=== PATIENT | male | born 1950 | race Caucasian/White ===

== ENCOUNTER 2018-08-22 10:27 | Emergency (ER) | payer OTHER, SELFPAY ==
[2018-08-22 10:38] VITALS: BP 130/70; PULSE 54; RESP 16; TEMP 36.4; O2SAT 100; BMI 28.7
--- NOTE | 2018-08-22 11:48 | DI.RAD.S_ITS ---
PROCEDURE: XR LUMBAR SPINE 2-3V INDICATIONS: fall/pain TECHNIQUE: 3 views of the lumbar spine were acquired. COMPARISON: [facility], [place], BILATERAL KNEE MIN 4VW, 09/10/2016, 12:24. FINDINGS: Bones: 5 [id number] vertebrae are present. There is normal bony alignment except for minimal convex leftward scoliosis centered at L3. No vertebral body compression fractures. No suspicious bony lesions. There is moderate to moderately severe degenerative disc disease and facet osteoarthritis at L4-5 and L5-S1. Facet degeneration is greater on the left than the right. Soft tissues: Overlying bowel gas pattern is normal. No suspicious soft tissue calcifications. IMPRESSION: No trauma found. Moderately severe to severe degenerative disc disease and facet osteoarthritis at L4-5 and L5-S1, left greater than right. Dictated by: Hernandez Echevarria M.D. on 08/22/2018 at 12:24 Approved by: Hernandez Echevarria M.D. on 08/22/2018 at 12:25
--- NOTE | 2018-08-22 11:51 | ED.FALL ---
HPI - Fall General Chief Complaint: Trauma Stated Complaint: NECK/BACK/RIB PAIN,DIFF BREATHING Time Seen by Provider: 08/22/18 11:02 Source: patient Mode of arrival: ambulatory Limitations: no limitations History of Present Illness HPI Narrative: Patient states he slipped on icy steps this morning and fell, striking his back. Patient states there were only 3 steps, so he did not fall down any further stairs. He states he is able to get up and walk afterward but has been having some ribs spasms since. He also felt a crunch in his neck, but states this is a common occurrence, secondary to his degenerative disease. Patient also states he has some pain in his lumbar spine. No other complaints at this time. Patient denies abdominal pain, chest pain, shortness of breath, or nausea. He states pain is minimal unless he is moving. Patient did not his head or lose consciousness. MD complaint: fall Onset (ago): hour(s) ( Three) Fall from: standing Fall witnessed: yes, by family Place fall occurred: home Loss of consciousness: none Symptoms prior to fall: none Context: tripped/slipped Severity scale (1-10): 4 ( with movement only, or with chest wall spasms.) Quality: spasming Related Data Home Medications Medication Instructions Recorded Confirmed omeprazole 20 mg PO QDAY #0 07/07/11 ibuprofen 800 mg PO Q8HP PRN #0 06/30/13 Previous Rx's Medication Instructions Recorded atorvastatin [Lipitor] 40 mg PO HS #90 tab 09/01/16 calcipotriene [Dovonex] 0 TOPICAL BID #60 gm 11/21/16 fluorouracil [Efudex] 5 % TP BID #45 gm 11/21/16 diclofenac sodium [Voltaren] 1 % TOPICAL TID #100 gm 03/12/17 sildenafil (antihypertensive) 0 PO HS #40 tab 05/12/17 Allergies Allergy/AdvReac Type Severity Reaction Status Date / Time cedarwood [CEDARWOOD] AdvReac Intermediate HIVES, Unverified 01/13/18 12:12 RHINITIS Review of Systems Review of Systems All systems reviewed & are unremarkable except as noted in HPI and below Constitutional Denies chills, Denies fever(s), Denies lethargy and Denies weakness Eyes Denies change in vision, Denies eye discharge, Denies irritation and Denies loss of vision ENT Ears, Nose, Mouth, and Throat: Denies change in voice, Denies neck pain and Denies sore throat Cardiovascular Denies chest pain, Denies irregular heart rhythm, Denies lightheadedness, Denies palpitations, Denies dyspnea, Denies dyspnea on exertion and Denies orthopnea Respiratory Denies cough, Denies dyspnea, Denies dyspnea on exertion and Denies wheezing Gastrointestinal Gastrointestinal: Denies abdominal pain, Denies change in bowel habits, Denies diarrhea, Denies nausea and Denies vomiting Genitourinary Denies hematuria, Denies flank pain, Denies urinary incontinence and Denies urinary urgency Musculoskeletal Reports back pain and Denies neck pain Integumentary/Breasts Denies pruritus, Denies erythema, Denies rash and Denies wounds Neurologic Denies confusion, Denies loss of vision and Denies weakness Psychiatric Denies anxiety, Denies confusion, Denies depression, Denies homicidal ideation and Denies suicidal ideation Endocrine Denies palpitations Hematologic/Lymphatic Denies easy bruising Allergic/Immunologic Denies wheezing Exam Initial Vital Signs Initial Vital Signs: Vital Signs Temperature 97.5 F L 08/22/18 10:38 Pulse Rate 54 L 08/22/18 10:38 Respiratory Rate 16 08/22/18 10:38 Blood Pressure 130/70 08/22/18 10:38 Pulse Oximetry 100 08/22/18 10:38 Const General: cooperative and well developed Nutritional Appearance: well nourished Orientation: alert, awake, oriented x3 and not confused [facility] Head: normocephalic and atraumatic Ears: external ears normal Nose: external nose normal and No nasal discharge Face and sinus: face symmetric Mouth: oral mucosae normal and moist mucous membranes Teeth and gingiva: dentition normal Throat: tonsils normal and uvula midline Eyes General: appearance normal, both eyes and all related structures Eyelids: eyelids normal Conjunctivae: conjunctivae normal Sclera: sclerae normal Pupils: PERRL EOM: EOM intact bilaterally Neck Neck: normal visual inspection, trachea midline, No lymphadenopathy, No midline deformity and No JVD Lymphatic: No lymphedema Chest Chest: normal inspection of the chest Resp Effort & Inspection: normal respiratory effort, able to speak in complete sentences, no respiratory distress and no use of accessory muscles Auscultation: clear to auscultation bilaterally, no rales, no rhonchi and no wheezes Cardio Rate: regular rate Rhythm: regular rhythm Heart Sounds: no click, no gallops, no murmurs and no rubs Pulses: normal peripheral pulses GI Inspection: non-distended Palpation: soft, no hepatosplenomegaly, No guarding, No pulsatile mass and No tender Back/Spine/Pelvis Back: No CVA tenderness Cervical Spine: cervical ROM normal and No pain with cervical ROM Other: Patient has tenderness over his lumbar spine in the L to 3 area. No deformity or step-off is noted. No external edema or contusion noted. No skin breakage. Patient also has tenderness over his left lumbar paraspinal musculature. Patient has full range of motion of all extremities. No tenderness or step-off any other level of the spine. Skin General: no rashes or lesions noted, No jaundice and No petechiae Other: Patient has a linear abrasion across the anterior portion of his left shoulder. Neuro General: alert, oriented x3, gait normal and no focal motor deficits Speech: speech normal Extrem General: full ROM, no clubbing, cyanosis or edema, no pedal edema and no calf tenderness Psych Appearance: well kempt Mental Status: mental status grossly normal Attitude: cooperative Thought Content: normal and suicidality Judgment: judgment good [facility] Medical History Healthy adult (Acute) Surgical History History of carpal tunnel repair History of vasectomy History of vasectomy Status post appendectomy Family History Grandfather Heart disease Social History Smoking Status: Former smoker Course Course Narrative: Patient was sent for a lumbar spine x-ray series, which was unremarkable. Urine dip showed a very small amount of blood, which patient stated he has always had. I did feel he was stable for discharge home. I have given him a small prescription for analgesia as the patient does have to travel to [facility] and then onto [facility] in a couple of days. We have discussed home management of the symptoms, as well as usual indications for return. Orders Ordered: ED Orders 08/22/18 11:48 XR lumbar spine 2-3V Stat Vital Signs - 8 hr 08/22/18 10:38 Temperature 97.5 F L Pulse Rate 54 L Respiratory Rate 16 Blood Pressure 130/70 Pulse Oximetry 100 MDM - Fall Medical Records Attestation: I reviewed the patient's medical records. Lab Data Attestation: I reviewed the patient's lab results. Urine Dip Bedside Urine Glucose Negative Bedside Urine Bilirubin - Negative Bedside Urine Ketone + 15 Urine Specific [place] 1.025 Bedside Urine Occult Blood +/- Bedside Urine pH 6.0 Bedside Urine Protein - Negative Bedside Urine Urobilinogen - Negative Bedside Urine Nitrite - Negative Bedside Urine Leukocytes - Negative Esterase Imaging Data XR lumbar spine: Attestation: I personally reviewed and interpreted this imaging study as follows: (unremarkable) Radiologist's impression: [address] [address] XRay Report Signed Patient: Néstor Woodall [facility]#: [id number] : 1950Acct:[id number] Age/Sex: 68 / MDate of Service: 08/22/18 Loc: ED Accession Number: [id number] Procedure: XR lumbar spine 2-3V Ordering Provider: Dorothea Toure MD PROCEDURE: XR LUMBAR SPINE 2-3V INDICATIONS: fall/pain TECHNIQUE: 3 views of the lumbar spine were acquired. COMPARISON: [facility], , BILATERAL KNEE MIN 4VW, 09/10/2016, 12:24. FINDINGS: Bones: 5 [id number] vertebrae are present. There is normal bony alignment except for minimal convex leftward scoliosis centered at L3. No vertebral body compression fractures. No suspicious bony lesions. There is moderate to moderately severe degenerative disc disease and facet osteoarthritis at L4-5 and L5-S1. Facet degeneration is greater on the left than the right. Soft tissues: Overlying bowel gas pattern is normal. No suspicious soft tissue calcifications. IMPRESSION: No trauma found. Moderately severe to severe degenerative disc disease and facet osteoarthritis at L4-5 and L5-S1, left greater than right. Dictated by: Hernandez Echevarria M.D. on 08/22/2018 at 12:24 Approved by: Hernandez Echevarria M.D. on 08/22/2018 at 12:25 Discharge Plan Departure Patient Disposition: Home Clinical Impression: Contusion of lower back Discharge Date/Time: 08/22/18 13:18 Interventions: ED Discharge Assessment Last Done: 08/22/18 13:05 Instructions: DI for Low Back Pain, DI for Contusion Activity Restrictions/Additional Instructions: Your x-rays looked good. Urine dip showed a trace amount of blood, which you have stated has been an issue in the past. There is no evidence of major bleeding which would be consistent with a kidney injury. Prescriptions: No Action omeprazole 20 MG tablet,delayed release (DR/EC) 20 mg PO QDAY Qty: 0 RF: 0 ibuprofen 400 MG tablet 800 mg PO Q8HP PRNQty: 0 RF: 0 atorvastatin [Lipitor] 40 MG tablet 40 mg PO HS Qty: 90 RF: 3 fluorouracil [Efudex] 5 % cream 5 % TP BID Qty: 45 RF: 0 calcipotriene [Dovonex] 0.005 % cream Topical BID Qty: 60 RF: 0 diclofenac sodium [Voltaren] 1 % gel 1 % Topical TID Qty: 100 RF: 1 sildenafil (antihypertensive) 20 MG tablet PO HS Qty: 40 RF: 0 Referrals: Julianna De Paz ARNP [Primary Care Provider] -
[2018-08-22 11:52] VITALS: BP 111/66; PULSE 49; RESP 14; O2SAT 100
--- NOTE | 2018-08-22 11:56 | ED_ITS ---
HPI - Fall General Chief Complaint: Trauma Stated Complaint: NECK/BACK/RIB PAIN,DIFF BREATHING Time Seen by Provider: 08/22/18 11:02 Source: patient Mode of arrival: ambulatory Limitations: no limitations History of Present Illness HPI Narrative: Patient states he slipped on icy steps this morning and fell, striking his back. Patient states there were only 3 steps, so he did not fall down any further stairs. He states he is able to get up and walk afterward but has been having some ribs spasms since. He also felt a crunch in his neck, but states this is a common occurrence, secondary to his degenerative disease. Patient also states he has some pain in his lumbar spine. No other complaints at this time. Patient denies abdominal pain, chest pain, shortness of breath, or nausea. He states pain is minimal unless he is moving. Patient did not his head or lose consciousness. MD complaint: fall Onset (ago): hour(s) ( Three) Fall from: standing Fall witnessed: yes, by family Place fall occurred: home Loss of consciousness: none Symptoms prior to fall: none Context: tripped/slipped Severity scale (1-10): 4 ( with movement only, or with chest wall spasms.) Quality: spasming Related Data Home Medications Medication Instructions Recorded Confirmed omeprazole 20 mg PO QDAY #0 07/07/11 ibuprofen 800 mg PO Q8HP PRN #0 06/30/13 Previous Rx's Medication Instructions Recorded atorvastatin [Lipitor] 40 mg PO HS #90 tab 09/01/16 calcipotriene [Dovonex] 0 TOPICAL BID #60 gm 11/21/16 fluorouracil [Efudex] 5 % TP BID #45 gm 11/21/16 diclofenac sodium [Voltaren] 1 % TOPICAL TID #100 gm 03/12/17 sildenafil (antihypertensive) 0 PO HS #40 tab 05/12/17 Allergies Allergy/AdvReac Type Severity Reaction Status Date / Time cedarwood [CEDARWOOD] AdvReac Intermediate HIVES, Unverified 01/13/18 12:12 RHINITIS Review of Systems Review of Systems All systems reviewed & are unremarkable except as noted in HPI and below Constitutional Denies chills, Denies fever(s), Denies lethargy and Denies weakness Eyes Denies change in vision, Denies eye discharge, Denies irritation and Denies loss of vision ENT Ears, Nose, Mouth, and Throat: Denies change in voice, Denies neck pain and Denies sore throat Cardiovascular Denies chest pain, Denies irregular heart rhythm, Denies lightheadedness, Denies palpitations, Denies dyspnea, Denies dyspnea on exertion and Denies orthopnea Respiratory Denies cough, Denies dyspnea, Denies dyspnea on exertion and Denies wheezing Gastrointestinal Gastrointestinal: Denies abdominal pain, Denies change in bowel habits, Denies diarrhea, Denies nausea and Denies vomiting Genitourinary Denies hematuria, Denies flank pain, Denies urinary incontinence and Denies urinary urgency Musculoskeletal Reports back pain and Denies neck pain Integumentary/Breasts Denies pruritus, Denies erythema, Denies rash and Denies wounds Neurologic Denies confusion, Denies loss of vision and Denies weakness Psychiatric Denies anxiety, Denies confusion, Denies depression, Denies homicidal ideation and Denies suicidal ideation Endocrine Denies palpitations Hematologic/Lymphatic Denies easy bruising Allergic/Immunologic Denies wheezing Exam Initial Vital Signs Initial Vital Signs: Vital Signs Temperature 97.5 F L 08/22/18 10:38 Pulse Rate 54 L 08/22/18 10:38 Respiratory Rate 16 08/22/18 10:38 Blood Pressure 130/70 08/22/18 10:38 Pulse Oximetry 100 08/22/18 10:38 Const General: cooperative and well developed Nutritional Appearance: well nourished Orientation: alert, awake, oriented x3 and not confused [facility] Head: normocephalic and atraumatic Ears: external ears normal Nose: external nose normal and No nasal discharge Face and sinus: face symmetric Mouth: oral mucosae normal and moist mucous membranes Teeth and gingiva: dentition normal Throat: tonsils normal and uvula midline Eyes General: appearance normal, both eyes and all related structures Eyelids: eyelids normal Conjunctivae: conjunctivae normal Sclera: sclerae normal Pupils: PERRL EOM: EOM intact bilaterally Neck Neck: normal visual inspection, trachea midline, No lymphadenopathy, No midline deformity and No JVD Lymphatic: No lymphedema Chest Chest: normal inspection of the chest Resp Effort & Inspection: normal respiratory effort, able to speak in complete sentences, no respiratory distress and no use of accessory muscles Auscultation: clear to auscultation bilaterally, no rales, no rhonchi and no wheezes Cardio Rate: regular rate Rhythm: regular rhythm Heart Sounds: no click, no gallops, no murmurs and no rubs Pulses: normal peripheral pulses GI Inspection: non-distended Palpation: soft, no hepatosplenomegaly, No guarding, No pulsatile mass and No tender Back/Spine/Pelvis Back: No CVA tenderness Cervical Spine: cervical ROM normal and No pain with cervical ROM Other: Patient has tenderness over his lumbar spine in the L to 3 area. No deformity or step-off is noted. No external edema or contusion noted. No skin breakage. Patient also has tenderness over his left lumbar paraspinal musculature. Patient has full range of motion of all extremities. No tenderness or step-off any other level of the spine. Skin General: no rashes or lesions noted, No jaundice and No petechiae Other: Patient has a linear abrasion across the anterior portion of his left shoulder. Neuro General: alert, oriented x3, gait normal and no focal motor deficits Speech: speech normal Extrem General: full ROM, no clubbing, cyanosis or edema, no pedal edema and no calf tenderness Psych Appearance: well kempt Mental Status: mental status grossly normal Attitude: cooperative Thought Content: normal and suicidality Judgment: judgment good [facility] Medical History Healthy adult (Acute) Surgical History History of carpal tunnel repair History of vasectomy History of vasectomy Status post appendectomy Family History Grandfather Heart disease Social History Smoking Status: Former smoker Course Course Narrative: Patient was sent for a lumbar spine x-ray series, which was unremarkable. Urine dip showed a very small amount of blood, which patient stated he has always had. I did feel he was stable for discharge home. I have given him a small prescription for analgesia as the patient does have to travel to [facility] and then onto [facility] in a couple of days. We have discussed home management of the symptoms, as well as usual indications for return. Orders Ordered: ED Orders 08/22/18 11:48 XR lumbar spine 2-3V Stat Vital Signs - 8 hr 08/22/18 10:38 Temperature 97.5 F L Pulse Rate 54 L Respiratory Rate 16 Blood Pressure 130/70 Pulse Oximetry 100 MDM - Fall Medical Records Attestation: I reviewed the patient's medical records. Lab Data Attestation: I reviewed the patient's lab results. Urine Dip Bedside Urine Glucose Negative Bedside Urine Bilirubin - Negative Bedside Urine Ketone + 15 Urine Specific [place] 1.025 Bedside Urine Occult Blood +/- Bedside Urine pH 6.0 Bedside Urine Protein - Negative Bedside Urine Urobilinogen - Negative Bedside Urine Nitrite - Negative Bedside Urine Leukocytes - Negative Esterase Imaging Data XR lumbar spine: Attestation: I personally reviewed and interpreted this imaging study as follows: (unremarkable) Radiologist's impression: [address] [address] XRay Report Signed Patient: Néstor Woodall [facility]#: [id number] : 1950Acct:[id number] Age/Sex: 68 / MDate of Service: 08/22/18 Loc: ED Accession Number: [id number] Procedure: XR lumbar spine 2-3V Ordering Provider: Dorothea Toure MD PROCEDURE: XR LUMBAR SPINE 2-3V INDICATIONS: fall/pain TECHNIQUE: 3 views of the lumbar spine were acquired. COMPARISON: [facility], , BILATERAL KNEE MIN 4VW, 09/10/2016, 12:24. FINDINGS: Bones: 5 [id number] vertebrae are present. There is normal bony alignment except for minimal convex leftward scoliosis centered at L3. No vertebral body compression fractures. No suspicious bony lesions. There is moderate to moderately severe degenerative disc disease and facet osteoarthritis at L4-5 and L5-S1. Facet degeneration is greater on the left than the right. Soft tissues: Overlying bowel gas pattern is normal. No suspicious soft tissue calcifications. IMPRESSION: No trauma found. Moderately severe to severe degenerative disc disease and facet osteoarthritis at L4-5 and L5-S1, left greater than right. Dictated by: Hernandez Echevarria M.D. on 08/22/2018 at 12:24 Approved by: Hernandez Echevarria M.D. on 08/22/2018 at 12:25 Discharge Plan Departure Patient Disposition: Home Clinical Impression: Contusion of lower back Discharge Date/Time: 08/22/18 13:18 Interventions: ED Discharge Assessment Last Done: 08/22/18 13:05 Instructions: DI for Low Back Pain, DI for Contusion Activity Restrictions/Additional Instructions: Your x-rays looked good. Urine dip showed a trace amount of blood, which you have stated has been an issue in the past. There is no evidence of major bleeding which would be consistent with a kidney injury. Prescriptions: No Action omeprazole 20 MG tablet,delayed release (DR/EC) 20 mg PO QDAY Qty: 0 RF: 0 ibuprofen 400 MG tablet 800 mg PO Q8HP PRNQty: 0 RF: 0 atorvastatin [Lipitor] 40 MG tablet 40 mg PO HS Qty: 90 RF: 3 fluorouracil [Efudex] 5 % cream 5 % TP BID Qty: 45 RF: 0 calcipotriene [Dovonex] 0.005 % cream Topical BID Qty: 60 RF: 0 diclofenac sodium [Voltaren] 1 % gel 1 % Topical TID Qty: 100 RF: 1 sildenafil (antihypertensive) 20 MG tablet PO HS Qty: 40 RF: 0 Referrals: Julianna De Paz ARNP [Primary Care Provider] -
[2018-08-22 12:52] VITALS: BP 120/70; PULSE 51; RESP 13; O2SAT 96
[2018-08-22 13:05] VITALS: BP 120/70; PULSE 50; RESP 20; O2SAT 95
== END 2018-08-22 13:18 | disposition home or self-care (01) ==
PROVIDERS: Emergency Provider Emergency Medicine; Family Provider Nurse Practitioner; PCP Nurse Practitioner
DX: S30.0XXA Contusion of lower back and pelvis, initial encounter (principal); W01.0XXA Fall on same level from slipping, tripping and stumbling without subsequent striking against object, initial encounter
CPT/HCPCS: 72100; 81003; 99282; 99284

== ENCOUNTER → 2018-10-01 13:02 | Outpatient (CLI) | payer OTHER, SELFPAY ==
[2018-10-01 13:17] LABS: Bacteria Urine None Seen
[2018-10-01 13:48] LABS: Add Manual Diff / Slide Review NO; Basophils Percent Auto 0.8 % (0-2); Eosinophils Percent Auto 4.4 % (2-4); Hematocrit 40.3 % (41-53); Lymphocytes Percent Auto 28.7 % (25-40); Mean Corpuscular HGB Conc 34.7 % (30-36); Mean Corpuscular Hemoglobin 30.4 PG (26-34); Mean Corpuscular Volume 87.6 fL (80-100); Monocytes Percent Auto 6.5 % (3-14); Neutrophils Absolute Auto 3100 /uL (1500-7000); Neutrophils Percent Auto 59.6 % (50-75); Platelet Count 189 X10^3/uL (150-400); Red Cell Distribution Width 13.9 % (11.6-14.8); White Blood Cell Count 5.2 X10^3/uL (4.5-11.0)
[2018-10-01 14:00] LABS: BUN Creatinine Ratio 21.1 (6-22); Blood Urea Nitrogen 19 mg/dL (9-20); Carbon Dioxide 25 mmol/L (22-32); Chloride 104 mmol/L (98-107); Estimated Glomerular Filt Rate > 60.0 mL/min (>60); Glucose 108 mg/dL (80-110); HEMOLYSIS 15 (0-50); Potassium 4.3 mmol/L (3.4-5.1); Sodium 142 mmol/L (137-145)
[2018-10-01 14:03] LABS: Transferrin 250 mg/dL (206-381)
[2018-10-01 14:07] LABS: Appearance Urine UA CLEAR; Bilirubin Urine UA NEGATIVE (NEGATIVE); Color Urine UA YELLOW; Glucose Urine UA NEGATIVE (Negative); Ketones Urine UA NEGATIVE (NEGATIVE); Leukocyte Esterase Urine UA NEGATIVE (NEGATIVE); Nitrite Urine UA NEGATIVE (Negative); Occult Blood Urine UA 1+ (Negative); Protein Urine UA NEGATIVE (Negative); Urobilinogen Urine UA 0.2 E.U./dL (0.2); pH Urine UA 5.5 (4.5-8.0)
[2018-10-01 14:16] LABS: Hemoglobin A1C% w Est Avg Glu 5.6 % (4.0-6.0)
[2018-10-01 14:29] LABS: RBC Urine 0-1/HPF (0-5/HPF); Urine Comments Microscopic Normal; WBC Urine 0-1/HPF (0-5/HPF)
== END ==
PROVIDERS: PCP Family Medicine; Visit Provider Orthopaedic Surgery
DX: Z01.818 Encounter for other preprocedural examination (principal); E61.1 Iron deficiency; N39.0 Urinary tract infection, site not specified; R73.9 Hyperglycemia, unspecified; R73.09 Other abnormal glucose
CPT/HCPCS: 36415; 80048; 81001; 83036; 84466; 85025; 87086; 93005

== ENCOUNTER 2018-11-01 08:19 | Inpatient (IN) | payer OTHER, SELFPAY ==
[2018-10-19 08:39] VITALS: BMI 29.0
[2018-11-01] VITALS (11 sets, daily range): BP systolic 104–150; BP diastolic 60–92; PULSE 51–80; RESP 12–18; TEMP 35.5–36.7; O2SAT 93–98; BMI 28.9
--- NOTE | 2018-11-01 06:00 | DI.RAD.S_ITS ---
PROCEDURE: XR KNEE RT 1TO2V INDICATIONS: prosthesis placement TECHNIQUE: 2 view(s) of the knee acquired. COMPARISON: None. FINDINGS: Bones: Patient is status post knee joint arthroplasty. Hardware components are in expected positions. Visualized bony structures are intact. Soft tissues: Overlying postoperative changes are noted. IMPRESSION: Status post right total knee arthroplasty. Dictated by: Rachel Crawley M.D. on 11/01/2018 at 12:34 Approved by: Rachel Crawley M.D. on 11/01/2018 at 12:34
[2018-11-01] MEDS: CELECOXIB 200 MG CAPSULE PO (09:05)
[2018-11-01] MEDS: PREGABALIN 75 MG CAPSULE PO (09:05)
[2018-11-01] MEDS: ACETAMINOPHEN 325 MG TABLET 975 MG PO ×3 (09:05→20:15)
[2018-11-01] MEDS: LACTATED RINGERS 1,000 ML 42 ML IV ×2 (09:07→12:10)
--- NOTE | 2018-11-01 09:16 | SUR.OPER ---
Supine on padded OR bed. Pillow under head, arms secured on padded armboards <90 degree abduction. Safety belt across torso. Non-operative leg secured with tape over blanket over lower leg. Operative leg secured in [employer]o/Gui positioner. Foam padded brace at thigh of operative leg.
--- NOTE | 2018-11-01 09:46 | PM.PREOP ---
Pre-operative Note Interval Note History & Physical reviewed/Exam performed by Physician: Yes Changes to H&P: No
--- NOTE | 2018-11-01 09:59 | P.OP_ITS ---
Operative Date/Time/Diagnoses Date of procedure: 11/01/18 Time of procedure: 12:00 Pre-op diagnosis: Right knee osteoarthritis Post-op diagnosis: same Procedure & Clinicians Procedure: Right total knee replacement Same procedure as scheduled: Yes Indications: The patient has had progressively worsening right knee pain with radiographic changes consistent with arthritis. Non-operative management has failed and the patient has requested total knee replacement. The risks, benefits and alternatives to surgery were discussed with the patient prior to proceeding. Risks discussed included, but were not limited to, failure to relieve pain, stiffness, infection, nerve damage, deep venous thrombosis, pulmonary embolism, stroke, coma, heart attack, permanent paralysis and , as well as the potential need for eventual revision of the prosthetic. Surgeon: Kyle Triana Meter And Regulator Shop Supervisor: Glenys Lam Click Yes if Unassisted: No Anesthesia Type: Spinal, Sedation and Local Operative Notes Findings: Tricompartmental osteoarthritis with relative sparing of the lateral compartment. Closure Type: primary Specimen(s): none sent Implants & Drains: Implants used in this procedure were manufactured by the [employer] and [employer] and included the BCS II Journey total knee replacement with a size 7 Oxinium femoral component, a size 7 non porous tibial base plate, a 10 mm cross-linked tibial insert, and a 35 mm oval Milly II patellar component. Applied: implant(s) Estimated Blood Loss (mL): 50 Blood products transfused: none Tourniquet time (min): 59 Procedure in detail: The patient was seen in the pre-operative area, where the patient identified the right knee as the operative site and this was marked with my initials. The patient received pre-operative antibiotics, and was taken to the operating room and placed on the operative table in the supine position. After satisfactory anesthesia, a part time out was performed. The right leg was encircled with a tourniquet about the proximal thigh, and the leg was prepared from the toes to the tourniquet with ChloroPrep in the usual fashion and draped through sterile drapes. The leg was elevated and exsanguinated with Eschmark bandage and the tourniquet inflated to 250 mmHg pressure. The knee was approached through an approximately 18 cm incision centered over the patella and carried into the knee through a medial parapatellar arthrotomy. The anterior osteophytes and soft tissues were removed. The rotational landmarks of [place]'s line and the transepicondylar axis were marked on the femur with electrocautery, and intramedullary guide holes for the femur and tibia were created. The distal femoral cut was made in 6 degrees of valgus using the intramedullary guide at the primary cut setting. The proximal tibial cut was then made using the intramedullary guide, taking 9 mm of bone off the less involved side. The extension gap was checked and the rotation of the femoral component confirmed with the gap balancing system. The anterior, posterior and chamfer cuts were then made. The posterior osteophytes and soft tissues were then removed. The posterior capsule was injected with part of a mixture of 60 ml 0.25% Marcaine mixed with 20 ml Exparel and 4 mg of morphine for post-operative pain control. The remainder of this mixture was injected into the capsule and subcutaneous tissues during cement curing. The tibia was prepared with the rotation set by an extra medullary guide. Trial tibial and femoral components were then placed and the intercondylar notch cut through the femoral trial. Range of motion was 0-135 degrees with good stability throughout the range. The patella was then cut to accommodate the patellar prosthetic. There was no need for a lateral release. The trials were then removed, and the femoral hole plugged with a bone plug. The bone was prepared with pulsatile lavage, and dried with a sponge. Cement was applied and the final prosthetics placed. Excess cement was removed during and after cement curing. After confirming there was no extruded cement posteriorly, the final tibial insert was placed. The knee was copiously irrigated and the tourniquet deflated. Hemostasis was obtained. The capsule was closed with interrupted # 2 polyester suture. The subcutaneous layer was closed with 3-0 Vicryl, and the skin with a running 3-0 V-Lock suture and SteriStrips. An Aquacel Ag dressing was applied and the patient was taken to recovery having tolerated the procedure well. Complications: none Condition: stable Disposition: PACU Plan for aftercare: The patient will be maintained on a standard total knee replacement protocol with weight bearing as tolerated. The patient will receive aspirin and sequential compression devices for DVT prophylaxis. The patient will be discharged home when safe for the home environment.
[2018-11-01] MEDS: CEFAZOLIN 2 GM/100 ML FROZ.PIGGY IV ×2 (10:16→19:24)
[2018-11-01] MEDS: BUPIVACAINE 0.25% W/ EPI VIAL 60 ML INJ (11:00)
[2018-11-01] MEDS: TRANEXAMIC ACID 1,000 MG VIAL 1000 MG INJ ×2 (11:00→11:47)
[2018-11-01] MEDS: BUPIVACAINE LIPOSOME 266 MG/20 ML VIAL INJ (11:00)
[2018-11-01] MEDS: MORPHINE 4 MG/ML INJ INJ (11:01)
[2018-11-01] MEDS: OXYCODONE IR 10 MG TABLET PO ×4 (14:04→23:26)
[2018-11-01] MEDS: LACTATED RINGERS 1,000 ML 125 ML IV ×2 (15:00→23:27)
[2018-11-01] MEDS: ONDANSETRON 4 MG/2 ML INJ IV (17:20)
--- NOTE | 2018-11-01 17:35 | PT.IIE ---
Current Diagnoses Bilateral primary osteoarthritis of knee (11/01/18) Surgery Performed Operation Date: 11/01/18 10:15 Actual Procedures p Total Knee Arthroplasty(Right) - Kyle Triana MD Surgical History (Last Updated 10/19/18 @ 09:25 by Breann Mixon RN) History of lumbar surgery (Acute ~1987) Hx of cervical spine surgery (Acute ~2009) Hx of knee surgery (Acute) Hx of knee surgery (Acute ~2003) Hx of shoulder surgery (Acute) History of carpal tunnel repair (~2012) History of vasectomy (~1972) History of vasectomy (~1991) Status post appendectomy Medical History (Last Updated 10/19/18 @ 09:25 by Breann Mixon RN) Admission for reversal of vasectomy (Acute ~1986) Anxiety (Acute) Arthritis (Acute) Chronic back pain (Acute) Colon polyps (Acute ~1995) Ectopic heartbeats (Acute ~1993) GERD (gastroesophageal reflux disease) (Acute) Hearing loss (Acute) Hyperlipidemia (Acute) Neck pain (Acute) Osteoarthritis (Acute) Seasonal allergies (Acute) Tinnitus (Acute ~1993) Physical Therapy Inpatient Evaluation/Re-Eval M1 PT/OT-IP Prior Functional Status Start: 11/01/18 17:10 Freq: NEEDED Status: Active Protocol: Document 11/01/18 15:00 (Rec: 11/01/18 17:35 [id number]) Medical Review Prior Functional Status Medical History Reviewed Yes Diet/Fluid Consistency Regular Communication No communication deficits noted. Mobility and Gait Pt was an independent ambulator at home and community without using AD. 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 Pt states he has difficulty getting up from the floor and kneeling on the ground. Activities of Daily Living and IADL's Pt was independent for all ADLs and IADLs without AD. Social History Household Members spouse Living Arrangements House Number of Floors (Floors) One Floor Number of Stairs To Enter/Railing? 3 CASSIA with B rails to front entrance, 3 CASSIA to backdoor with R rail only. Home Environment Standard Height Toilet Walk in Shower Home Equipment Front Wheel Walker Straight Cane Raised Toilet Seat Without Armrests Employment Status Retired Additional Social History Comment Pt lives with his at a 1 story home in [place]. 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 Pt was very independent and physically active before without using any AD and he also drives. M2 PT-IP Current Condition Start: 11/01/18 17:10 Freq: NEEDED Status: Active Protocol: Document 11/01/18 15:00 (Rec: 11/01/18 17:35 [id number]) Physical Therapy Current Condition Current Condition Evaluation Date 11/01/18 Treatment Diagnosis R TKA, difficulty in walking Onset Date 11/01/18 Weight Bearing Status Weight Bearing Status Weight Bear as Tolerated M3 PT-IP Subjective Start: 11/01/18 17:10 Freq: NEEDED Status: Active Protocol: Document 11/01/18 15:00 (Rec: 11/01/18 17:35 [id number]) Subjective Physical Therapy Visit Type Type Initial Evaluation Visit Start Time 15:00 Visit Stop Time 15:30 Total Visit Minutes 30 Notes Pt agreeable to mobilize with PT. Pt's and daughter at bedside. He also reports pain 5/10. Number of OBGYN HOSPITALIST PHYSICIAN Visits 0 Physical Therapy Visit Comments Patient Comments My R knee feels pretty good and im ready to get out of bed . Therapy Pain Assessment Pain When Pain Assessed During Mobility Pain Present Pain Present Pain Reported Location Right Knee Intensity 5 Scale Used Numeric (1 - 10) Description Acute Pain Management Techniques Elevation Modification of Treatment Re-positioning Timing of Activity with Medications M4 PT-IP Mobility and Gait Start: 11/01/18 17:10 Freq: NEEDED Status: Active Protocol: Document 11/01/18 15:00 (Rec: 11/01/18 17:35 [id number]) PT-Bed Mobility Assessment Supine to Sit Supine to Sit Standby Assistance Head of Bed Elevated Scooting Scooting to Edge of Bed Standby Assistance Scooting Up and Down in Bed Standby Assistance PT-Transfer Assessment Sit to and From Stand Sit to and from Stand Standby Assistance Use of Upper Extremities Equipment Transfer Assistive Device Gait Belt Front Wheeled Walker Transfers Transfer Destination Bed Chair Toilet Transfer Technique Stand Step Pivot Transfer Ability Level of Assist Standby Assistance Comments Mobility Comments Pt requires SBA for overall bed mobility and transfers. Pt was able to stand step pivot to bedside chair and he did amb to bathroom for toileting. Pt maintained static standing with and without AD for >5 mins with SBA. Pt did not show LOB and acute distress. Pt was able to maintain R TKE upon standing but he did require cues to facilitate even weight bearing on B LEs. Gait Assessment Gait Gait Assistance Required: Standby Assistance Distance (Feet) 25 Assistive Devices Assistive Device Gait Belt Front Wheeled Walker Gait Deviations General Gait Pattern Antalgic Decreased Stride Length Decreased Feet Clearance Factors Limiting Gait Function Factors Limiting Gait Function Decreased Activity Tolerance Decreased Strength Limited Range of Motion Pain Comments Gait Comments Pt amb from EOB and to bathroom, then amb around his room and returned back to bedside chair with FWW SBA. Pt demonstrates slight R antalgic gait with decreased stride length and foot clearance on R side due to pain. Pt requires cues to facilitate for even weight distribution. However, he did not show acute distress or increase in knee pain at the end of session. But he did c/o slight fatigue. Stair Climbing Assessment Comments Stair Climbing Comments Did not attempt due to fatigue PT-Balance Assessment Sitting Balance and Reactions Static Sitting Balance Ability Normal Dynamic Sitting Balance Ability Normal Standing Balance and Reactions Static Standing Balance Ability Normal Dynamic Standing Balance Ability Good M5 PT-IP Objective Assessments Start: 11/01/18 17:10 Freq: NEEDED Status: Active Protocol: Document 11/01/18 15:00 (Rec: 11/01/18 17:35 [id number]) Orientation Orientation/Cognition Level of Alertness Alert Orientation Name Age Birthday Month Date Year Day of Week Place Situation Language Function Ability No Deficits Noted Safety Awareness Understands Safety Issues Memory Description No Deficits Noted Gross Range of Motion Upper Extremity ROM Assessment Within Functional Limits Lower Extremity ROM Assessment Right Impaired Impairments R knee flexion A/PROM 100 degrees Strength Upper Extremity Strength Assessment Within Functional Limits Lower Extremity Strength Assessment Right Impaired Comments Strength Comments 3+/5 of knee strength grossly Coordination Assessment Gross Coordination Gross Coordination WNL Sensation Assessment Sensation Gross Sensation WNL Muscle Tone Muscle Tone WNL Yes M6 PT-IP Treatment Start: 11/01/18 17:10 Freq: NEEDED Status: Active Protocol: Document 11/01/18 15:00 (Rec: 11/01/18 17:35 [id number]) Physical Therapy Treatment Exercises Exercises Ankle Pumps Gluteal Sets Quad Sets Heel Slides Education Education Provided Precautions Weight Bearing Status Post-Op Packet Safety Other Treatments Other Treatment Performed standing R TKE M7 PT-IP Assessment and Plan Start: 11/01/18 17:10 Freq: NEEDED Status: Active Protocol: Document 11/01/18 15:00 (Rec: 11/01/18 17:35 [id number]) PT Summary Assessment and Plan Potential Rehabilitation Potential Excellent Status of Condition at Evaluation Stable Summary Impairments Pain ROM Strength Balance Bed Mobility Transfers Gait Activity Tolerance Assessment Summary Pt is a very pleasant and motivated male s/p R TKA due to chronic OA at his R knee. Pt demonstrates overall SBA with 1p for functional mobility and amb. Pt demonstrates safe transfer and techniques and has a good understanding of his surgery and rehab plan. However, he did presents slight R antalgic gait and decreased feet clearance and stride length ( RLE). Pt did not report increase in knee pain but did c/o slight fatigue at the end of session. Pt's family was also very attentive during session and his (retired and very independent) will be his CG as needed at home at all times. However, pt has 3 CASSIA to his house and pt has to clear them prior to d/c home with outpatient PT. Goals Bed Mobility Goal Independent Transfer Goal Independent Gait Goal Independent Gait Distance 200 Other Goals with/ without AD stair climbing x 3 steps x 3 sets with R rail. Days to Meet Goals 5 Frequency of Treatment Frequency Of Treatment Twice a Day Treatment Plan Physical Therapy Treatment Plan Bed Mobility Training Transfer Training Gait Training Therapeutic Exercise Balance Retraining Post Op Education Discharge Planning Hot or Cold Pack Recommendations To Nursing Amount of Assist Needed Standby Assistance Discharge Recommendations PT Discharge Recommendations Home Outpatient PT
[2018-11-01] MEDS: ASPIRIN EC 81 MG TABLET PO (20:15)
[2018-11-01] MEDS: PRAVASTATIN 20 MG TABLET PO (20:15)
[2018-11-01] MEDS: EZETIMIBE 10 MG TABLET PO (20:15)
[2018-11-01] MEDS: DOCUSATE 100 MG CAPSULE PO (20:15)
[2018-11-01] MEDS: hydrOXYzine pamoate 25 MG CAPSULE PO (21:27)
[2018-11-02] MEDS: OXYCODONE IR 10 MG TABLET PO ×3 (02:35→12:34)
[2018-11-02] MEDS: CEFAZOLIN 2 GM/100 ML FROZ.PIGGY IV (02:36)
[2018-11-02] MEDS: hydrOXYzine pamoate 25 MG CAPSULE PO (02:44)
[2018-11-02 04:06] VITALS: BP 118/69; PULSE 59; RESP 16; TEMP 36.7; O2SAT 97
[2018-11-02] MEDS: PANTOPRAZOLE 20 MG TABLET PO (05:28)
[2018-11-02 05:55] LABS: Hematocrit 38.5 % (41-53); Hemoglobin 12.9 g/dL (13.5-17.5)
--- NOTE | 2018-11-02 07:46 | PM.DS.1 ---
History of Present Illness Date Patient Seen: 11/02/18 Time Patient Seen: 07:46 Chief complaint: [id number] Knee Arthroplasty Narrative: History and physical are contained in the chart and a previously completed note. Please refer to that note for this information. Discharge Providers Date of admission: 11/01/18 08:19 Primary care physician: Nathan Gorman MD Consults: 11/01/18 13:06 Consult to Discharge Planning Routine Comment: Consult to Physical Therapy Evaluate & Treat Comment: Physician Instructions: postop TKA protocol Discharge provider: Kyle Triana MD Discharge Date: 11/02/18 Summary Discharge Diagnosis: 1. Right knee osteoarthritis 2. Mild, anticipated acute post hemorrhagic anemia Hospital Course: The patient was admitted to the hospital and taken directly to the operating room on November 01, 2018 where he underwent a right total knee replacement without complications. He tolerated the procedure well and was in moderate pain postoperative day 1 but this was controlled with oral medication. At the time of this dictation the plan is he will go home later today after progressing with physical therapy as he had a good start in physical therapy yesterday. Status at Discharge Cognitive/behavioral status at discharge: Baseline Functional status at discharge: uses cane/walker Overall status at discharge: patient is progressing back to baseline Time Spent with Patient Less than 30 minutes Exam Vital Signs (past 8 hours): - 11/02/18 04:06 Temperature 98.0 F Pulse Rate 59 L Respiratory Rate 16 Blood Pressure 118/69 Pulse Oximetry 97 Oxygen Delivery Method Room Air Narrative Exam Narrative: Right knee wound is dressed with no drainage on the bandage. Calf is soft. Light touch and motion are intact in the right lower extremity. Objective Labs Result Diagrams: 11/02/18 05:24 Labs: Laboratory Results - last 24 hr 11/02/18 05:24 Hgb 12.9 L Hct 38.5 L Discharge Plan Discharge Plan Patient Disposition: Home Discharge Med Rec/Prescriptions Prescriptions: New aspirin 81 mg Tablet,Delayed Release (Dr/Ec) 81 mg PO BID Qty: 100 RF: 0 oxycodone 5 mg Tablet 5 mg PO Q3HR PRN (Reason: Pain, Moderate (4-6)) Qty: 40 RF: 0 hydroxyzine pamoate 25 mg Capsule 25 mg PO Q6HR PRN (Reason: Nausea) Qty: 40 RF: 0 Continue omeprazole 20 MG tablet,delayed release (DR/EC) 20 mg PO QDAY Qty: 0 RF: 0 ibuprofen 400 MG tablet 800 mg PO BID PRN (Reason: pain) Qty: 0 RF: 0 pravastatin 20 mg Tablet 20 mg PO BEDTIME RF: 0 ezetimibe 10 mg Tablet 10 mg PO BEDTIME RF: 0 sildenafil (antihypertensive) 20 MG tablet 100 mg PO HS PRN (Reason: Sexual Activity) RF: 0 Follow up/Referrals: Kyle Triana MD [Physician] - 3-5 Days Provider Discharge Instructions Diet: Diet as Tolerated Activity: Walk for 5-10 minutes every hour while you are awake. Cold/Heat Therapy: You may place ice on the right knee for 15 min every hour as needed. Skin/Wound/Dressing Care Report to your healthcare provider any signs of infection, such as:: chills, fever, night sweats, increased pain, unusual drainage and unusual redness Dressing: Leave the Ned wrap intact for 3 days postoperatively. You may then remove the Ned wrap and shower with the deeper dressing in place. If the deeper dressing becomes saturated with either water or blood please call my office. Discharge Data Primary Care Provider: Nathan Gorman Attending Provider: Kyle Triana Admit Date/Time: 11/01/18 08:19 Quality VTE Deep Vein Thrombosis/Pulmonary Embolism Present on Admission: No
[2018-11-02 08:12] VITALS: BP 132/75; PULSE 58; RESP 16; TEMP 36.7; O2SAT 96
[2018-11-02] MEDS: OXYCODONE IR 5 MG TABLET PO ×2 (08:39→10:36)
[2018-11-02] MEDS: ACETAMINOPHEN 325 MG TABLET 975 MG PO (08:39)
[2018-11-02] MEDS: ASPIRIN EC 81 MG TABLET PO (08:39)
[2018-11-02] MEDS: DOCUSATE 100 MG CAPSULE PO (08:40)
[2018-11-02] MEDS: IBUPROFEN 400 MG TABLET 800 MG PO (10:37)
--- NOTE | 2018-11-02 11:44 | PT.IPTN ---
Current Diagnoses Bilateral primary osteoarthritis of knee (11/01/18) Surgery Performed Operation Date: 11/01/18 10:15 Actual Procedures p Total Knee Arthroplasty(Right) - Kyle Triana MD Physical Therapy Treatment Note M2 PT-IP Current Condition Start: 11/01/18 17:10 Freq: NEEDED Status: Active Protocol: Document 11/01/18 15:00 HH (Rec: 11/01/18 17:35 HH [id number]) Physical Therapy Current Condition Current Condition Evaluation Date 11/01/18 Treatment Diagnosis R TKA, difficulty in walking Onset Date 11/01/18 Weight Bearing Status Weight Bearing Status Weight Bear as Tolerated M3 PT-IP Subjective Start: 11/01/18 17:10 Freq: NEEDED Status: Active Protocol: Document 11/02/18 09:30 CLB (Rec: 11/02/18 11:44 CLB [id number]) Subjective Physical Therapy Visit Type Type Treatment Note Visit Start Time 09:30 Visit Stop Time 10:00 Total Visit Minutes 30 Number of SENIOR FIRE PROTECTION ENGINEER Visits 1 Physical Therapy Visit Comments Patient Comments Feel ready to go home, pt willing to trial stairs. Therapy Pain Assessment Pain When Pain Assessed During Mobility Pain Present Pain Present Pain Reported Location Right Knee Intensity 5 Scale Used Numeric (1 - 10) Pain Management Techniques Elevation Modification of Treatment Re-positioning Timing of Activity with Medications M4 PT-IP Mobility and Gait Start: 11/01/18 17:10 Freq: NEEDED Status: Active Protocol: Document 11/02/18 09:30 CLB (Rec: 11/02/18 11:44 CLB [id number]) PT-Bed Mobility Assessment Sit to Supine Sit to Supine Standby Assistance Head of Bed Elevated Scooting Scooting to Edge of Bed Standby Assistance Scooting Up and Down in Bed Standby Assistance PT-Transfer Assessment Sit to and From Stand Sit to and from Stand Standby Assistance Use of Upper Extremities Equipment Transfer Assistive Device Gait Belt Front Wheeled Walker Transfers Transfer Destination Bed Chair Transfer Ability Level of Assist Standby Assistance Comments Mobility Comments Pt continues to do well with all bed mobility and transfers requiring SBA. Gait Assessment Gait Gait Assistance Required: Standby Assistance Distance (Feet) 230 Assistive Devices Assistive Device Gait Belt Front Wheeled Walker Gait Deviations General Gait Pattern Antalgic Decreased Stride Length Decreased Feet Clearance Factors Limiting Gait Function Factors Limiting Gait Function Decreased Activity Tolerance Decreased Strength Limited Range of Motion Pain Comments Gait Comments Pt increased ambulation to ~ 230 SBA/FWW able to assist pt. Stair Climbing Assessment Evaluation Level of Assist On Stairs Contact Guard Assistance 1 Person Assistance Devices Stair Climbing Assistive Devices Right Railing Technique/Endurance Stair Climbing Direction Ascend and Descend Stair Climbing Technique Step to Step Number of Steps Climbed 3 Query Text: Stair Climbing Set # Repetitions (reps) 3 Comments Stair Climbing Comments Pt able to climb three stairs x3 able to appropriately assist pt. M5 PT-IP Objective Assessments Start: 11/01/18 17:10 Freq: NEEDED Status: Active Protocol: Document 11/01/18 15:00 HH (Rec: 11/01/18 17:35 HH [id number]) Orientation Orientation/Cognition Level of Alertness Alert Orientation Name Age Birthday Month Date Year Day of Week Place Situation Language Function Ability No Deficits Noted Safety Awareness Understands Safety Issues Memory Description No Deficits Noted Gross Range of Motion Upper Extremity ROM Assessment Within Functional Limits Lower Extremity ROM Assessment Right Impaired Impairments R knee flexion A/PROM 100 degrees Strength Upper Extremity Strength Assessment Within Functional Limits Lower Extremity Strength Assessment Right Impaired Comments Strength Comments 3+/5 of knee strength grossly Coordination Assessment Gross Coordination Gross Coordination WNL Sensation Assessment Sensation Gross Sensation WNL Muscle Tone Muscle Tone WNL Yes M6 PT-IP Treatment Start: 11/01/18 17:10 Freq: NEEDED Status: Active Protocol: Document 11/02/18 09:30 CLB (Rec: 11/02/18 11:44 CLB [id number]) Physical Therapy Treatment Exercises Exercises Ankle Pumps Gluteal Sets Quad Sets Heel Slides Straight Leg Raises Short Arc Quads Passive Knee Extension Hang Education Education Provided Precautions Weight Bearing Status Post-Op Packet Safety M7 PT-IP Assessment and Plan Start: 11/01/18 17:10 Freq: NEEDED Status: Active Protocol: Document 11/02/18 09:30 CLB (Rec: 11/02/18 11:44 CLB [id number]) PT Summary Assessment and Plan Potential Rehabilitation Potential Excellent Status of Condition at Evaluation Stable Summary Impairments Pain ROM Strength Balance Bed Mobility Transfers Gait Activity Tolerance Assessment Summary pt is SBA for all bed mobility , transfers and gait. CG training with today, is able to appropriately assist pt with all mobility, ther ex and provided CGA for stairs. Pt seems able to d/c when medically stable. Goals Bed Mobility Goal Independent Transfer Goal Independent Gait Goal Independent Gait Distance 200 Other Goals with/ without AD stair climbing x 3 steps x 3 sets with R rail. Days to Meet Goals 5 Frequency of Treatment Frequency Of Treatment Twice a Day Treatment Plan Physical Therapy Treatment Plan Bed Mobility Training Transfer Training Gait Training Therapeutic Exercise Balance Retraining Post Op Education Discharge Planning Hot or Cold Pack Recommendations To Nursing Amount of Assist Needed Standby Assistance Discharge Recommendations PT Discharge Recommendations Home Outpatient PT
[2018-11-02 12:00] VITALS: BP 127/70; PULSE 56; RESP 16; TEMP 36.9; O2SAT 96
--- NOTE | 2018-11-02 14:03 | PC.NURSE ---
Discharge pt medicated with oxycodone and ibuprofen to help control pain, pt states that it is better with medication. PIV removed prior to d/c. pt has Rx already as he is a [place] [employer] pt. Dressing is intact, 2 spots of shaddow drainage in place on dressing. pt aware to monitor dressing at home. d/c instructions provided to pt and his . aware of f/u apt with surgeon and also to contact surgeon with any additional questions or concerns. pt left in w/c with [employer] escort and . pt states he took all belongings with him.
== END 2018-11-02 14:00 | disposition home or self-care (01) | DRG 470 ==
PROVIDERS: Admitting Provider Orthopaedic Surgery; Family Provider Nurse Practitioner; PCP Family Medicine; Visit Provider Orthopaedic Surgery
PROC: 0SRC0JZ Replacement of Right Knee Joint with Synthetic Substitute, Open Approach (ICD-10-PCS; CPT 27447; principal; 2018-11-01 10:15)
DX: M17.11 Unilateral primary osteoarthritis, right knee (principal); K21.9 Gastro-esophageal reflux disease without esophagitis; Z87.891 Personal history of nicotine dependence
CPT/HCPCS: 36415; 73560; 85014; 85018; 97116; 97161; 97530; C1776; C9290; J0690; J1100; J2250; J2270; J2405; J2704

== ENCOUNTER → 2024-09-08 12:07 | Outpatient (CLI) | payer MEDICARE, SELFPAY ==
[2021-10-10 18:47] VITALS: BMI 28.9
--- NOTE | 2024-09-08 12:09 | DI.MRI.S_ITS ---
PROCEDURE: MR SHOULDER RT WO CON INDICATIONS: IMPINGEMENT SYNDROME RT SHOULDER TECHNIQUE: Noncontrast oblique coronal T2 fast spin echo with fat saturation, oblique sagittal T1 spin echo and T2 fast spin echo with fat saturation, axial T1 spin echo and T2 fast spin echo with fat saturation through the shoulder. COMPARISON: None. FINDINGS: Image quality: Somewhat limited evaluation given patient motion.. Rotator cuff: There is full-thickness tear at the footprint of the junction of the supraspinatus and infraspinatus, measuring 7 mm on sagittal dimension, with tendon retraction to the level of the mid humeral head. Moderate tendinosis of the supraspinatus and infraspinatus. Small amount of fluid and 1.3 cm delaminated cyst tracking along the myotendinous junction of the infraspinatus. The teres minor is unremarkable. Moderate tendinosis of the subscapularis, with low-grade interstitial tear. Small amount of fluid tracking along the myotendinous junction of the superior fiber of the subscapularis. No muscle edema. Mild atrophy of the supraspinatus and the infraspinatus. 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 Type 1 acromion. No os acromiale. Mild subacromial/subdeltoid bursitis. Severe chondrosis of the glenohumeral joint with complete chondral denudation of the humeral head, and the glenoid. Mild subchondral marrow edema in the inferior glenoid, degenerative. Mild subchondral cystic changes in the posterior greater tuberosity, reactive. No acute fracture. Capsule and soft tissues: Diffuse labral degeneration and tear. 1.1 cm paralabral cyst about the anterior superior labrum. Low-grade interstitial tear of the extra-articular biceps tendon. The intra-articular biceps tendon is not definitely visualized. Small glenohumeral effusion. Mild subcoracoid bursitis. No intra-articular body. IMPRESSION: 1. 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 2. Severe chondrosis of the glenohumeral joint. 3. Full-thickness, partial width tear at the junction of supraspinatus and infraspinatus. 4. Low-grade tear of the subscapularis. 5. Labral tear with 1.1 cm paralabral cyst. 6. Low-grade the tear of the extra-articular biceps tendon. Nonvisualization of the intra-articular biceps tendon, which may be torn. Dictated by: Sun Pappas M.D. on 09/08/2024 at 15:06 Approved by: Sun Pappas M.D. on 09/08/2024 at 15:16
== END ==
PROVIDERS: Family Provider Nurse Practitioner; PCP Family Medicine; Referring Provider Family Medicine; Visit Provider Family Medicine
DX: M75.41 Impingement syndrome of right shoulder (principal); M75.121 Complete rotator cuff tear or rupture of right shoulder, not specified as traumatic; M19.011 Primary osteoarthritis, right shoulder; S43.431A Superior glenoid labrum lesion of right shoulder, initial encounter; S46.211A Strain of muscle, fascia and tendon of other parts of biceps, right arm, initial encounter; M94.211 Chondromalacia, right shoulder; M25.511 Pain in right shoulder; G89.29 Other chronic pain; Z98.890 Other specified postprocedural states
CPT/HCPCS: 73221